=== PATIENT | male | born 1965 | race African-American/Black ===

== ENCOUNTER 2017-02-25 06:03 | Day surgery (SDC) | payer BC, OTHER ==
--- NOTE | 2017-02-15 03:56 | HP ---
PREOPERATIVE HISTORY AND PHYSICAL: DATE OF ADMISSION/SURGERY: 02/25/17 DATE OF OFFICE VISIT: 02/12/17 ATTENDING SURGEON: Dr. Urmila Link * (DICTATED BY PILAR DIETRICH) PROCEDURE: Left knee arthroscopy, meniscectomy, possible chondroplasty, and possible synovectomy. CHIEF COMPLAINT: Left knee pain. HISTORY OF PRESENT ILLNESS: Clayton is a 51-year-old male who presents to the clinic for left knee pain due to a work-related injury due to medial meniscus tear. The patient has failed conservative measures and therefore, agreed to undergo a left knee arthroscopy, meniscectomy, possible chondroplasty, and possible synovectomy with Dr. Link on 02/25/17. PAST MEDICAL HISTORY: 1. GERD. 2. Anxiety. PAST SURGICAL HISTORY: Right inguinal hernia, left knee arthroscopy. Denies prior complications with anesthesia. MEDICATIONS: 1. Percocet 5/325 one to two every 4 to 6 hours as needed for pain. 2. Trazodone 100 mg tablet by mouth every night at bedtime. 3. Chantix. 4. Methocarbamol 500 mg 1 to 2 up to 4 times a day as needed for spasms. 5. Meloxicam 15 mg daily. ALLERGIES: No known drug allergies. FAMILY HISTORY: Positive for lung cancer in his brother, hypertension in his mom. Denies family history of DVT or PE. SOCIAL HISTORY: The patient lives alone. 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 He is a former smoker. He quit 2 weeks ago. He denies alcohol or illegal drug use. REVIEW OF SYSTEMS: General: Negative for fevers, chills, night sweats. No known anesthesia problems. HEENT: Negative for headache, lightheadedness, or syncopal episodes. Integumentary: Negative for abrasions, lesions, or open wounds. Cardiothoracic: Negative for chest pain, palpitations, or edema. Negative for hypertension. Pulmonary: Negative for shortness of breath with exertion, chronic cough, or COPD. GI: Negative for nausea, vomiting, diarrhea. Positive for GERD. : Negative for nocturia, urinary frequency, urinary urgency, history of UTIs, or kidney problems. Musculoskeletal: Positive for left knee pain. Neuro: Denies numbness, tingling, history of seizure, stroke, epilepsy. Endocrine: Negative for diabetes or thyroid issues. Heme: Negative for easy bruising, anemia, excessive bleeding, or history of DVT. Infectious Disease: Negative for history of MRSA, hep C, or HIV. PHYSICAL EXAMINATION GENERAL: Well-developed, well-nourished, 51-year-old male in no acute distress. Alert and oriented x3 with appropriate mood and affect. VITAL SIGNS: Height 71, weight 233, pulse 90, blood pressure 116/74, temperature 97.9, BMI is 32.5. HEENT: Normocephalic, atraumatic. PERRLA. NECK: Supple. Throat clear. PULMONARY: Lungs clear to auscultation bilaterally. No wheezing, rhonchi, or rales. CARDIO: Regular rate and rhythm, S1 and S2. No murmurs, gallops or rubs. No edema. ABDOMEN: Positive bowel sounds, soft, nontender. NEURO: Alert and oriented x3. Cranial nerves grossly intact. Sensation is intact to light touch. MUSCULOSKELETAL: Left lower extremity: Skin is intact. Healed prior scope incisions. No warmth or erythema. Moderate effusion. Range of motion 5 to 125 degrees. Stable to varus and valgus stress. +2 dorsalis pedis pulse. Sensation intact to light distally. DIAGNOSTIC STUDIES: X-rays revealed [id number] degenerative osteoarthritis changes, narrowing of the medial and patellofemoral joint spaces , and osteophytes. MRI of the left knee revealed arthritis in the medial and patellofemoral compartments as well as a large tear of the medial meniscus. IMPRESSION: Left knee medial meniscus tear and osteoarthritis. PLAN: The patient is scheduled to undergo a left knee arthroscopy, meniscectomy , possible chondroplasty, and possible synovectomy with Dr. Link on 02/25/17. Dr. Link saw the patient today and went over postoperative complications and answered all of his questions. He will return to the office 10 to 14 days postop for followup and suture removal. A prescription for Percocet was e- prescribed to the patient's pharmacy for postop pain management. I-STOP was checked and was negative. PILAR DIETRICH [id number]/[facility] #: [id number] [facility]ENTER[facility]i
[~2017-02-25 06:03] MED LIST: Buffered Lidocaine 0.9% SYRIN* 5 ML/SYR SYRINGE INTRADERM ONE; Buffered Lidocaine 0.9% SYRIN* 5 ML/SYR SYRINGE ONE; Famotidine IV* 10 MG/ML 2 ML (20 mg) IV ONE; Famotidine IV* 10 MG/ML 2 ML (20 mg) ONE; PROCHLORPERAZINE INJ 5 MG/ML 2 ML VIAL IV PRN; Scopolamine 1.5 mg* PATCH TRANSDERM PRN; ceFAZolin 2 GM PREMIX(*) 2 GM/50 ML BAG IVPB ONE
[2017-02-25] MEDS ORDERED: methylPREDNISolone ACETATE 80* 80 MG/ML 1 ML VIAL ONE (07:01)
[2017-02-25] MEDS ORDERED: EPINEPHrine AMP 1 MG/ML ONE ×2 (07:02→07:53)
[2017-02-25] MEDS ORDERED: Bupivacaine 0.5% SDV PF* 30 ML VIAL ONE (07:02)
[2017-02-25] MEDS ORDERED: KETAMINE HCL* 50 MG/ML 10 ML VIAL ONE (07:09)
[2017-02-25] MEDS ORDERED: Midazolam* 1 MG/ML 5 ML VIAL (5 MG) ONE (07:09)
[2017-02-25] MEDS ORDERED: fentaNYL* 50 MCG/ML 2 ML VIAL (100 MCG VIAL) ONE ×3 (07:09→08:46)
[2017-02-25] MEDS ORDERED: Lidocaine 2% PF * 5 ML VIAL ONE ×2 (07:36→07:37)
[2017-02-25] MEDS ORDERED: Ondansetron INJ* 2 MG/ML VIAL ONE (07:36)
[2017-02-25] MEDS ORDERED: Propofol* 10 MG/ML 20 ML BTL IV PUSH ONE (07:36)
[2017-02-25] MEDS ORDERED: Dexamethasone IV* 4 MG/ML 1 ML (4 MG) ONE (07:36)
[2017-02-25] MEDS ORDERED: Ketorolac INJ* 30 MG/ML 1 ML VIAL ONE (07:36)
[2017-02-25] MEDS ORDERED: Labetalol IV* 5 MG/ML 20 ML VIAL ONE (08:16)
[2017-02-25] MEDS ORDERED: oxyCODONE/Acetamin 5/325 MG* TAB ONE (08:46)
[2017-02-25] MEDS ORDERED: Morphine INJ* 10 MG/ML 1 ML SYRINGE ONE (08:46)
[2017-02-25] MEDS: fentaNYL* 50 MCG/ML 2 ML VIAL (100 MCG VIAL) IV PRN ×2 (08:48→08:59)
[2017-02-25] MEDS: oxyCODONE/Acetamin 5/325 MG* TAB PO PRN ×2 (08:48→08:49)
[2017-02-25] MEDS: Morphine INJ* 2 MG/ML 1 ML SYRINGE IV PRN ×2 (08:51→09:00)
[2017-02-25 10:18] VITALS: BP 126/93
--- NOTE | 2017-02-26 16:29 | OP ---
OPERATIVE NOTE: DATE OF OPERATION: 02/24/17 DATE OF : 63 ATTENDING SURGEON: Urmila Link MD [employer] DEVELOPER: PILAR Carlin Ms. did help throughout the procedure with preparation of the leg, manipulation of instrume nts in the knee, and wound closure. ANESTHESIOLOGIST: Dr. Serrano. ANESTHESIA: General. PRE-OP DIAGNOSIS: Left knee pain with moderate osteoarthritis and acute medial meniscal tear. POST-OP DIAGNOSIS: Left knee acute radial posteromedial meniscal tear, moderate to severe degenerat jordan osteoarthritis. OPERATIVE PROCEDURE: Left knee arthroscopy with partial medial meniscectomy, medial chondroplasty, patellofemoral chondroplasty. COMPLICATIONS: None. ESTIMATED BLOOD LOSS: Less than 25 cc. SPECIMENS: None. BRIEF HISTORY/INDICATIONS: Mr. Campuzano is a 51-year-old gentleman who injured himself while working w [employer] over a year ago. He did have a meniscal tear treated with arthroscopy at that time on the left knee. Over the last year, the patient has had pain. He had an increased period of pain and a repea t MRI showed an acute retear of the medial meniscus along the posterior horn. Due to continued pain and swelling in the knee, he elected to have left knee arthroscopy with partia l medial meniscectomy, possible chondroplasty, and synovectomy. Informed consent was obtained from the patient. He understands the risks of surgery include, but are not limited to bleeding, infectio n, damage to nearby structures, continued pain, need for further surgery, stroke, heart attack, bloo d clot, and . He wished to proceed. INTRAOPERATIVE FINDINGS: Intraoperatively, the patient was noted to have a radial type tear of the posterior medial meniscus. He had a grade 3 and 4 Outerbridge cartilage changes in the patellofemor al medial compartment. Minimal degenerative changes in the lateral compartment. DESCRIPTION OF PROCEDURE: Mr. Campuzano was identified in the preanesthesia unit. His left lower extre mity was marked as the correct operative site. Informed consent was signed and placed in the chart. The patient was taken to the operating room and placed under general anesthesia. Left lower extre mity was prepped and draped in the usual sterile fashion. Preop time-out was made to correctly iden tify the patient's side and site. Appropriate perioperative antibiotics were given within 1 hour of incision. A one-half cm standard anterolateral portal incision was made with a 15 blade and carried down throu gh the capsule. Trocar was introduced. As soon as the water and light sources were turned on, ther e was immediate visualization of the knee joint. Suprapatellar pouch had no obvious abnormality. Th ere were multiple pieces of cartilage fragments throughout the joint fluid. Patellofemoral compartm ent showed some chondral flapping and grade 3/4 Outerbridge cartilage changes. Medial gutter had no plica or loose body. Medial compartment showed a significant amount of expulsive chondral bone, gr emma 3/4 Outerbridge cartilage changes, along the majority of the weightbearing surface of the medial femoral condyle. The medial meniscus showed a radial type tear with anterior displacement along th e posterior horn of the medial meniscus. ACL appeared to be intact. The knee was placed in a figur e-of-four position. There was no obvious lateral meniscal tear. No significant degenerative change s. Under direct visualization, a medial portal incision was made with a 15 blade. Probe was introduced and the second tour of the knee joint was performed. There were no additional findings. A shaver w as introduced into the joint and all cartilage fragments were carefully removed from the joint fluid using irrigation and suction. A straight biter and shaver were then used to perform partial medial meniscectomy into the white-red zone of the posterior portion of the medial meniscus. The radial t ear was easily excised. Next, a radiofrequency ablation wand was used to obtain meticulous hemostasis. Any cartilage flaps were carefully smoothed along the medial femoral condyle as well as the medial and lateral patellar facets. The shaver was introduced into the suprapatellar pouch and the knee was copiously irrigated with ano ther 3 L of sterile saline. All instruments were carefully removed. The incisions were closed usin g interrupted 3-0 nylon suture. Intraarticular injection of 80 mg of Depo-Medrol and 6-cc of 0.25% M arcaine was placed in the knee joint. Sterile Xeroform, 4x4, and Webril were used to cover the knee . Richard wrap and cold pack were placed over this. The patient's anesthesia was reversed without difficulty. He was taken to the PACU in stable condit ion. Intended weightbearing will be weightbearing as tolerated. He will have aspirin for DVT prophy laxis. He will follow up in 2 weeks' time for suture removal. [id number]/[facility] #: [id number]
[2017-02-28] MEDS ORDERED: Scopolomine PATCH Remove* 1 NOTE MISC PATCH OFF ONE (05:41)
== END 2017-02-25 10:50 | disposition home or self-care (01) ==
LOC: OR 06:03
PROVIDERS: ATTEND Orthopaedic Surgery Adult Reconstructive Orthopaedic Surgery
DX: S83.242A Other tear of medial meniscus, current injury, left knee, initial encounter (principal); M17.12 Unilateral primary osteoarthritis, left knee; X50.0XXA Overexertion from strenuous movement or load, initial encounter; Y92.9 Unspecified place or not applicable; Y99.0 Civilian activity done for income or pay; Z87.891 Personal history of nicotine dependence
CPT/HCPCS: A9270-GY; J0171; J0690; J1040; J1100; J1885; J2250; J2270; J2405; J2704; J3010